=== PATIENT | male | born 1970 | race Caucasian/White ===

== ENCOUNTER → 2016-11-05 | Outpatient (CLI) | payer MEDICAID ==
[~2016-11-05] MED LIST: ASPRIN OR; BUSPIRONE10 MG PO; LISINOPRIL 20MG20 MG PO; LITHIUM CARB 3300 MG PO; METOPROLOL 25 M25 MG PO; NICOTINE PATCH;21 MG TD; PREDNISONE 20MG20 MG PO; RISPERDAL 0.50.5 MG NG; RISPERDAL3 MG PO; TAMSULOSIN HYD0.4 M1 PO
[2016-11-05 18:06] LABS: HEMOGLOBIN 15.3 g/dL (14.1-18.0); LYMPH # 1.7 K/mm3 (0.7-4.5); LYMPH % 17.9 % (10-50)
[2016-11-05 18:10] LABS: BUN 13 mg/dL (7-18)
[2016-11-05 18:19] LABS: GFR (ESTIMATED) 72 ML/MIN (>60)
== END ==
LOC: LAB 17:52
PROVIDERS: Emergency Medicine
DX: I10 Essential (primary) hypertension (principal)

== ENCOUNTER 2016-11-20 08:00 | Day surgery (SDC) | payer MEDICAID ==
[~2016-11-20] VITALS: Ht 177.8 cm; Wt 98.4 kg
--- NOTE | 2016-11-20 11:12 | Operative Note ---
Endoscopy Report Date: 11/20/16 Preoperative diagnosis: Postprandial epigastric pain Procedure Type of procedure: Esophagogastroduodenoscopy with biopsies Indications: Patient is a 46-year-old white male referred from Dr. Garcia for upper endoscopy to evaluate "acid reflux". History of bipolar disorder. He states that he was clinically previously diagnosed with reflux years ago and his symptoms improved on medical therapy. He never had previous endoscopy. He has some recurrent symptoms characterized by upper abdominal postprandial epigastric pain usually occurring within minutes of eating. He does drink a large amount of coffee and states that spicy foods and fatty type foods tend to be worse. He is not on any medical therapy at this time. Consent was obtained and patient was taken to same-day surgery endoscopy procedure room. He was positioned in a lateral decubitus position. Adequate intravenous sedation was achieved. Olympus endoscope was inserted via the oropharynx advanced through the esophagus. In the distal esophagus there was some focal esophagitis. Stomach was cannulated and insufflated. There was a very small hiatal hernia. There was diffuse moderate but nonerosive gastritis. Gastric antral mucosal biopsy was obtained for CLOtest for H. pylori. Several gastric biopsies were obtained for histopathologic analysis. Within the duodenum there was minor erythema of the mucosa and several biopsies were obtained. In the distal esophagus several biopsies were obtained at the gastroesophageal junction and in the distal esophagus at a site of focal esophagitis. Findings: 1. Focal distal esophagitis 2. Small hiatal hernia 3. Diffuse nonerosive gastritis Recommendations: I will follow-up on the histopathology and H. pylori status. Treat H. pylori if positive. If negative likely will start proton pump inhibitors. at 1112
[2016-11-20 12:21] VITALS: BP 128/87
== END 2016-11-20 11:40 | disposition home or self-care (01) ==
LOC: SDC 08:00
PROVIDERS: Surgery
PROC: 0DB68ZX Excision of Stomach, Via Natural or Artificial Opening Endoscopic, Diagnostic (ICD-10-PCS; 2016-11-20)
PROC: 0DB38ZX Excision of Lower Esophagus, Via Natural or Artificial Opening Endoscopic, Diagnostic (ICD-10-PCS; 2016-11-20)
PROC: 0DB48ZX Excision of Esophagogastric Junction, Via Natural or Artificial Opening Endoscopic, Diagnostic (ICD-10-PCS; 2016-11-20)
PROC: 0DB98ZX Excision of Duodenum, Via Natural or Artificial Opening Endoscopic, Diagnostic (ICD-10-PCS; principal; 2016-11-20 10:30)
DX: K44.9 Diaphragmatic hernia without obstruction or gangrene (principal); K21.0 Gastro-esophageal reflux disease with esophagitis; K29.70 Gastritis, unspecified, without bleeding

== ENCOUNTER → 2017-05-14 | Outpatient (CLI) | payer MEDICAID ==
--- NOTE | 2017-05-14 13:26 | RADIOLOGY REPORT PS360 ---
LOWER LEG-RT COMPARISON: None HISTORY: Right leg pain TECHNIQUE: AP and lateral views FINDINGS: The tibia and fibula appear intact with no evidence of recent or old fracture. The soft tissues are normal. IMPRESSION: Negative right tibia and fibula
== END ==
LOC: RAD 11:18
DX: M79.661 Pain in right lower leg (principal)

== ENCOUNTER 2017-07-30 15:15 | Emergency (ER) | payer MEDICAID ==
[~2017-07-30] VITALS: Ht 177.8 cm; Wt 102.5 kg
[~2017-07-30 15:15] MED LIST changes: +BREO ELLIPTA1 POW IH; +GABAPENTIN300 MG PO; +HYDROCHLOROTHIA25 M1 PO; +HYDROXYZINE 25M25 MG PO; +LITHIUM CARBON150 MG PO; +OLANZAPINE5 MG PO; +PANTOPRAZOLE SO40 MG PO; +TRAZODONE100 MG PO
--- NOTE | 2017-07-30 16:14 | Urgent Treatment Center Report ---
History of Present Issue Date/Time Seen by Provider 07/30/17 1608 Visit Reason Pt arrived:Walked Presenting Problem:PT CAME IN TO BE SEEN TODAY FOR SWELLING IN HIS LEGS (BOTH SIDES) X 2 WEEKS STATES HE COULDN'T GET IN WITH DR GODOY AND HE DOESN'T KNOW WHAT HE'S ON TO KNOW IF HE'S SUPPOSED TO TAKE A DIURETIC OR NOT Location if Accident: Onset of symptoms date/time:/ or onset unknown for:MEDICAL HX UNKNOWN Have you (or family members/close friends) recently traveled outside the [place]? N If Yes, where/when: Have you had exposure to infectious disease within the past month? TB? Other? Specify: Patient state that he called the clinic today and couldn't get in because they where busy so he decided to come here. State that he has been having swelling in both his legs for over two weeks now States that today they seem to be better than what they was. State that he recently began to drink alot of Tomato juice and his doctor recently took him off one of his "water pill" state that he thought he may should come in and see if we could start him back on it ALLERGIES Coded Allergies: nickel (07/30/17) Uncoded Allergies: CLEAR ADHESIVE TAPE (08/11/13) Home Medications Reported Medications Buspirone Hcl (Buspirone HCl) 10 MG PO TID NICOTINE (Nicotine Patch) 21 MG TD Q12H [place] Carbonate ([place] Carb 300MG Capsule) 600 MG PO BID LISINOPRIL (Lisinopril) 2.5 MG PO DAILY Metoprolol Tartrate (Metoprolol 25MG) 50 MG PO BID [place] Carbonate 150 MG PO BID Hydroxyzine Pamoate (Hydroxyzine) 25 MG PO Q8H FLUTICASONE/VILANTEROL (Breo Ellipta 100-25 Mcg INH) 1 POW IH DAILY Trazodone Hcl (Trazodone HCl) 100 MG PO QHSP PRN INSOMNIA Olanzapine (Olanzapine 5MG Tab) 5 MG PO DAILY Pantoprazole Sodium (Pantoprazole 40MG) 40 MG PO DAILY Gabapentin (Gabapentin 300MG) 300 MG PO BID HYDROCHLOROTHIAZIDE (Hydrochlorothiazide) 25 MG PO DAILY History Medical History General CAD? No Angina: Yes [place]: No Hypertension? Yes Hyperlipidemia? Yes CHF? No DVT? No PE? No COPD? Yes Asthma? Yes Anemia? No GERD? No Gastric ulcers? No GI Bleed? No Hernia? No Thyroid Problems? No Hypothyroidism? No CVA? No Seizures? No Diabetes? No Renal Insuffiency? No UTI? No Stones? No BPH? No GB Disease: No Nephritic Syndrome? No Asplenia? No Hepatitis? No Sickle Cell Disease? No Arthritis? Yes Migraines? No Cataracts? No Glaucoma? No MRSA? No HIV? No TB? No Anxiety? Yes Depression? Yes Cancer? No More? Yes Additional hx: NEUROPATHY,INSOMNIA Immunization HX DT/Tetanus Unknown Flu 2015- Flu Season Pneumonia Received In Past Surgical Hx Previous Surgery?Y NOSE ORAL SURGERY Social History Smoking Hx Smoker: Current Every Day Smoker Tobacco: Yes Type N/A Packs/day < 1 Pack Alcohol Alcohol: Yes Review of Systems All Other Systems Reviewed and Negative Respiratory cough, denies shortness of breath, denies wheezing Cardiovascular denies chest pain, edema, denies palpitations, denies syncope Comment Swelling in lower extremities for over 2 weeks that has not improved Physical Exam Vital Signs Vital Signs Date Time Temp Pulse Resp B/P Pulse O2 O2 Flow FiO2 Ox Delivery Rate 07/30 1526 98.0 77 18 133/87 95 General Appearance normal appearance, WD/WN, no apparent distress Respiratory Status Yes: trachea midline, chest symmetrical, non tender chest. No: respiratory distress. 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 No Progress [facility] Progress Notes Comment Offered to send patient to ER for further work up and patient refused advised that he didn't want to go over there. Called Primary Care office and spoke with Hitesh and informed her of paitent and his complaint Patient denies SOA, denies CP Advised per Hitesh Barber Dc patient home and have him follow up with Dr Godoy in the morning at 10am and if he begans to swell more or have SOA or CP go straight to ER Patient wanted to be started back on other dieurtic and patient was educated that his family doctor may have taken him off that for a reason and he needed to see him to have him start it back regularly. Patient informed that he did understand risks of not going to ER Departure Departure Time of Disposition 1639 Disposition DC Home or Self Care(routine) Clinical Impression Primary Impression: Pedal edema Condition STABLE Referrals Jose BLACKMAN,Miguel Ramirez (Family): Tomorrow-Call Office Your appointment is tomorrow at 10am make sure to keep appointment Patient Instructions DI for Dependent Edema Additional Instructions You have an appointment in the morning with Dr Godoy at 10 am Make sure you keep that appointment. GO home tonight and do not drink any Tomato juice or anything high in sodium. Sit down and prop feet up on pillows and keep them above your heart and that will help with swelling If you began to have any chest pain, shortness of breath or any sign of difficulty go straight to the Emergency Room Return if needed Discharge Counseling Counseled pt/family regarding diagnosis, home care, follow up needs at [phone]
--- NOTE | 2017-07-30 16:14 | Urgent Treatment Center Report ---
History of Present Issue Date/Time Seen by Provider 07/30/17 1608 Visit Reason Pt arrived:Walked Presenting Problem:PT CAME IN TO BE SEEN TODAY FOR SWELLING IN HIS LEGS (BOTH SIDES) X 2 WEEKS STATES HE COULDN'T GET IN WITH DR GODOY AND HE DOESN'T KNOW WHAT HE'S ON TO KNOW IF HE'S SUPPOSED TO TAKE A DIURETIC OR NOT Location if Accident: Onset of symptoms date/time:/ or onset unknown for:MEDICAL HX UNKNOWN Have you (or family members/close friends) recently traveled outside the [place]? N If Yes, where/when: Have you had exposure to infectious disease within the past month? TB? Other? Specify: Patient state that he called the clinic today and couldn't get in because they where busy so he decided to come here. State that he has been having swelling in both his legs for over two weeks now States that today they seem to be better than what they was. State that he recently began to drink alot of Tomato juice and his doctor recently took him off one of his "water pill" state that he thought he may should come in and see if we could start him back on it ALLERGIES Coded Allergies: nickel (07/30/17) Uncoded Allergies: CLEAR ADHESIVE TAPE (08/11/13) Home Medications Reported Medications Buspirone Hcl (Buspirone HCl) 10 MG PO TID NICOTINE (Nicotine Patch) 21 MG TD Q12H [place] Carbonate ([place] Carb 300MG Capsule) 600 MG PO BID LISINOPRIL (Lisinopril) 2.5 MG PO DAILY Metoprolol Tartrate (Metoprolol 25MG) 50 MG PO BID [place] Carbonate 150 MG PO BID Hydroxyzine Pamoate (Hydroxyzine) 25 MG PO Q8H FLUTICASONE/VILANTEROL (Breo Ellipta 100-25 Mcg INH) 1 POW IH DAILY Trazodone Hcl (Trazodone HCl) 100 MG PO QHSP PRN INSOMNIA Olanzapine (Olanzapine 5MG Tab) 5 MG PO DAILY Pantoprazole Sodium (Pantoprazole 40MG) 40 MG PO DAILY Gabapentin (Gabapentin 300MG) 300 MG PO BID HYDROCHLOROTHIAZIDE (Hydrochlorothiazide) 25 MG PO DAILY History Medical History General CAD? No Angina: Yes [place]: No Hypertension? Yes Hyperlipidemia? Yes CHF? No DVT? No PE? No COPD? Yes Asthma? Yes Anemia? No GERD? No Gastric ulcers? No GI Bleed? No Hernia? No Thyroid Problems? No Hypothyroidism? No CVA? No Seizures? No Diabetes? No Renal Insuffiency? No UTI? No Stones? No BPH? No GB Disease: No Nephritic Syndrome? No Asplenia? No Hepatitis? No Sickle Cell Disease? No Arthritis? Yes Migraines? No Cataracts? No Glaucoma? No MRSA? No HIV? No TB? No Anxiety? Yes Depression? Yes Cancer? No More? Yes Additional hx: NEUROPATHY,INSOMNIA Immunization HX DT/Tetanus Unknown Flu 2015- Flu Season Pneumonia Received In Past Surgical Hx Previous Surgery?Y NOSE ORAL SURGERY Social History Smoking Hx Smoker: Current Every Day Smoker Tobacco: Yes Type N/A Packs/day < 1 Pack Alcohol Alcohol: Yes Review of Systems All Other Systems Reviewed and Negative Respiratory cough, denies shortness of breath, denies wheezing Cardiovascular denies chest pain, edema, denies palpitations, denies syncope Comment Swelling in lower extremities for over 2 weeks that has not improved Physical Exam Vital Signs Vital Signs Date Time Temp Pulse Resp B/P Pulse O2 O2 Flow FiO2 Ox Delivery Rate 07/30 1526 98.0 77 18 133/87 95 General Appearance normal appearance, WD/WN, no apparent distress Respiratory Status Yes: trachea midline, chest symmetrical, non tender chest. No: respiratory distress. 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 No Progress [facility] Progress Notes Comment Offered to send patient to ER for further work up and patient refused advised that he didn't want to go over there. Called Primary Care office and spoke with Hitesh and informed her of paitent and his complaint Patient denies SOA, denies CP Advised per Hitesh Barber Dc patient home and have him follow up with Dr Godoy in the morning at 10am and if he begans to swell more or have SOA or CP go straight to ER Patient wanted to be started back on other dieurtic and patient was educated that his family doctor may have taken him off that for a reason and he needed to see him to have him start it back regularly. Patient informed that he did understand risks of not going to ER Departure Departure Time of Disposition 1639 Disposition DC Home or Self Care(routine) Clinical Impression Primary Impression: Pedal edema Condition STABLE Referrals Jose BLACKMAN,Miguel Ramirez (Family): Tomorrow-Call Office Your appointment is tomorrow at 10am make sure to keep appointment Patient Instructions DI for Dependent Edema Additional Instructions You have an appointment in the morning with Dr Godoy at 10 am Make sure you keep that appointment. GO home tonight and do not drink any Tomato juice or anything high in sodium. Sit down and prop feet up on pillows and keep them above your heart and that will help with swelling If you began to have any chest pain, shortness of breath or any sign of difficulty go straight to the Emergency Room Return if needed Discharge Counseling Counseled pt/family regarding diagnosis, home care, follow up needs at [phone]
[2017-07-30 16:48] VITALS: BP 133/87
== END 2017-07-30 16:49 | disposition home or self-care (01) ==
LOC: ER 15:15 → UTC 15:25
DX: R60.0 Localized edema (principal); Z91.048 Other nonmedicinal substance allergy status; I10 Essential (primary) hypertension; E78.5 Hyperlipidemia, unspecified; J44.9 Chronic obstructive pulmonary disease, unspecified; F41.8 Other specified anxiety disorders; F17.210 Nicotine dependence, cigarettes, uncomplicated

== ENCOUNTER → 2017-07-31 | Outpatient (CLI) | payer MEDICAID ==
[2017-07-31 18:31] LABS: BUN 10 mg/dL (7-18)
[2017-07-31 18:56] LABS: GFR (ESTIMATED) 72 ML/MIN (>60)
== END ==
LOC: LAB 15:56
PROVIDERS: Emergency Medicine
DX: E78.5 Hyperlipidemia, unspecified (principal); I10 Essential (primary) hypertension; Z79.899 Other long term (current) drug therapy